=== PATIENT | female | born 1945 | race Two or more races ===

== ENCOUNTER 2021-06-03 10:56 | Outpatient (CLI) | payer OTHER | END 2021-06-03 10:57 | disposition home or self-care (01) | LOC: NUCLEAR 10:56 | PROVIDERS: ATTEND General Practice | DX: I73.9 Peripheral vascular disease, unspecified (principal) ==

== ENCOUNTER 2021-06-27 07:49 | Outpatient (CLI) | payer OTHER | END 2021-06-27 07:55 | disposition home or self-care (01) | LOC: TOM 07:49 | PROVIDERS: ATTEND General Practice | DX: R22.1 Localized swelling, mass and lump, neck (principal) ==

== ENCOUNTER 2022-04-02 16:55 | Emergency (ER) | payer OTHER ==
[~2022-04-02] VITALS: Ht 172.7 cm; Wt 60.8 kg
== END 2022-04-02 18:00 | disposition home or self-care (01) ==
LOC: ER 16:55
DX: M79.601 Pain in right arm (principal)

== ENCOUNTER 2022-04-04 10:17 | Outpatient (CLI) | payer OTHER ==
[2022-04-04] MEDS ORDERED: LISINOPRIL20 MG PO (13:46)
== END 2022-04-04 10:23 | disposition home or self-care (01) ==
LOC: NUCLEAR 10:17
PROVIDERS: ATTEND General Practice
DX: R60.9 Edema, unspecified (principal)

== ENCOUNTER 2022-04-04 13:04 | Emergency (ER) | payer OTHER ==
[~2022-04-04] VITALS: Ht 162.6 cm; Wt 56.2 kg
[2022-04-04] MEDS ORDERED: LISINOPRIL20 MG PO (13:46)
== END 2022-04-04 20:27 | disposition left against medical advice (07) ==
LOC: ER 13:04
DX: M79.601 Pain in right arm (principal)

== ENCOUNTER → 2022-04-22 | Emergency (ER) | payer OTHER ==
[~2022-04-22] VITALS: Ht 162.6 cm; Wt 55.3 kg
[~2022-04-22] MED LIST: LISINOPRIL20 MG PO
== END | disposition home or self-care (01) ==
LOC: ER 15:45
DX: J21.0 Acute bronchiolitis due to respiratory syncytial virus (principal); J98.01 Acute bronchospasm; R05.9 Cough, unspecified; Z20.822 Contact with and (suspected) exposure to COVID-19

== ENCOUNTER 2022-04-28 13:01 | Emergency (ER) | payer OTHER ==
[~2022-04-28] VITALS: Ht 167.6 cm; Wt 61.2 kg
== END 2022-04-28 21:07 | disposition left against medical advice (07) ==
LOC: ER 13:01
DX: R60.9 Edema, unspecified (principal); Z20.822 Contact with and (suspected) exposure to COVID-19